=== PATIENT | female | born 1945 | race Caucasian/White ===

== ENCOUNTER 2020-08-30 18:53 | Inpatient (IN) | payer OTHER ==
[~2020-08-30] VITALS: Ht 152.4 cm; Wt 45.4 kg
[2020-08-30] MEDS ORDERED: CEphaleXIN 500 MG CAPSULE PO ONE (19:30)
--- NOTE | 2020-08-30 19:30 | NUR ---
patient resting in bed, no acute distress is noted at this time
[2020-08-30] MEDS ORDERED: CEphaleXIN 500 MG CAPSULE ONE (19:41)
[2020-08-30] MEDS ORDERED: QUET300T2 PO (20:59)
[2020-08-30] MEDS ORDERED: TELM80TA2 PO (20:59)
[2020-08-30] MEDS ORDERED: TETR25TA2 PO ×2 (20:59)
[2020-08-30] MEDS ORDERED: MIRT15TA7 PO (20:59)
[2020-08-30] MEDS ORDERED: ROSU5TAB13 PO (20:59)
--- NOTE | 2020-08-30 21:00 | NUR ---
patient is resting in bed, looking at environment, no acute distress is noted
--- NOTE | 2020-08-30 22:25 | NUR ---
Pt. admitted to 139A, under care of Dr. Grullon. Belongs List completed, transported with all original paperwork via gurney to [facility].
[2020-08-30 23:00] VITALS: BP 156/78
[2020-08-30] MEDS ORDERED: MAGNESIUM HYDROXIDE 30 ML LIQUID UDC PO PRN (23:15)
[2020-08-30] MEDS ORDERED: MAG HYDROX/AL HYDROX/SIMETH 30 ML LIQUID UDC PO PRN (23:15)
[2020-08-30] MEDS ORDERED: LORAZEPAM 0.5 MG TABLET PO PRN (23:15)
[2020-08-30] MEDS ORDERED: ACETAMINOPHEN 325 MG TABLET PO PRN (23:15)
[2020-08-30] MEDS: TEMAZEPAM 7.5 MG CAPSULE PO PRN (23:37)
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
--- NOTE | 2020-08-31 06:50 | NUR ---
SHE DID NOT SLEEP THROUGH OUT THE NIGHT.00 HOURS EVEN AFTER TAKING RESTORIL 7.5MG AT 23:35. SHE KEPT SAYING "I WANT TO GO HOME'.
[2020-08-31 07:30] VITALS: BP 131/61
--- NOTE | 2020-08-31 11:00 | NUR ---
Gps/Buttonhole Marker- Noted patient was given her riki ($ 201.00) to another patient. the money she kept in her pocket., was placed in the Unit safe
[2020-08-31] MEDS ORDERED: QUETIAPINE FUMARATE 25 MG TABLET PO PRN (13:30)
[2020-08-31 15:26] VITALS: BP 122/60
--- NOTE | 2020-08-31 16:16 | NUR ---
Record Changer Tester Note: Initial Assessment completed today. Patient lives at home with her 2 sisters. Preliminary discharge plans are for patient to return home. Family contact: sister Hahn, .
[2020-08-31] MEDS: CEphaleXIN 500 MG CAPSULE PO SCH (17:49)
--- NOTE | 2020-08-31 18:22 | NUR ---
Gps/water fabricator operator- Patient . anxious, wanting to go home, confused, claimed her on his way to pick her up, throwing his dentures on the floor.,. dentures kept in a denture cup and plkept in the medication room. refusing to eat dinner claimed she already ate. Informed patient she has not eaten dinner yet, got irritated, agitated., also refusing lap tray, kept her in ,in front of the Nurses station for her safety.. patient refusing to take pm medications.
[2020-08-31 20:09] VITALS: BP 123/73
[2020-08-31] MEDS: QUETIAPINE FUMARATE 100 MG TABLET PO SCH (20:13)
[2020-08-31] MEDS ORDERED: TETRABENAZINE PO SCH (21:00)
--- NOTE | 2020-09-01 06:00 | NUR ---
GPS: Pt. slept 7.15 last night. Showered earlier by staff. Calm and cooperative during care. Poor insight to present situation. Denies wanting to hurt self. Fall precautions observed. Reality re-orientation provided.
[2020-09-01 07:30] VITALS: BP 122/69
[2020-09-01 07:56] LABS: BASOPHILS # (AUTO) 0.1 K/uL (0.0-8.0); BASOPHILS % (AUTO) 1.1 % (0.0-2.0); EOSINOPHILS % (AUTO) 0.8 % (0.0-7.0); HEMATOCRIT 41.3 % (31.2-41.9); HEMOGLOBIN 13.6 g/dL (10.9-14.3); LYMPHOCYTES # (AUTO) 1.4 K/uL (20.0-40.0); LYMPHOCYTES % (AUTO) 24.2 % (20.5-51.5); MEAN CORPUSCULAR HEMOGLOBIN 30.1 uug (24.7-32.8); MEAN CORPUSCULAR HGB CONC 33 g/dL (32.3-35.6); MEAN CORPUSCULAR VOLUME 91.8 fL (75.5-95.3); MONOCYTES # (AUTO) 0.6 K/uL (2.0-10.0); MONOCYTES % (AUTO) 9.8 % (0.0-11.0); NEUTROPHILS # (AUTO) 3.7 K/uL (1.8-8.9); NEUTROPHILS % (AUTO) 64.1 % (38.5-71.5); PLATELET COUNT (AUTO) 220 K/uL (179-408); WHITE BLOOD COUNT (AUTO) 5.7 K/uL (3.8-11.8)
[2020-09-01 08:14] LABS: THYROID STIMULATING HORMONE 1.019 mIU/mL (0.358-3.740)
[2020-09-01 08:21] LABS: CREATININE 0.7 mg/dL (0.6-1.3); MAGNESIUM 2.5 mg/dL (1.8-2.4); POTASSIUM 3.4 mmol/L (3.5-5.1)
[2020-09-01] MEDS ORDERED: TETRABENAZINE 25 MG PO SCH (09:00)
[2020-09-01] MEDS: VALSARTAN 160 MG TABLET PO SCH (09:00)
[2020-09-01] MEDS ORDERED: POTASSIUM CHLORIDE 20 MEQ TAB.PRT.SR PO SCH (09:15)
[2020-09-01] MEDS: CEphaleXIN 500 MG CAPSULE PO SCH ×2 (10:10→17:17)
[2020-09-01] MEDS: QUETIAPINE FUMARATE 25 MG TABLET PO PRN (10:11)
[2020-09-01] MEDS: ATORVASTATIN 10 MG TABLET PO SCH (10:12)
--- NOTE | 2020-09-01 10:40 | NUR ---
Gps/Ink Maker- Per daughter Selma, she would like her mother to received Flu and pneumonia vaccine, she claimed she does not remember patient receiving vaccines for many years. Asked patient if ok to give her the vaccines she stated" its ok"
--- NOTE | 2020-09-01 10:47 | NUR ---
Gps/Bowling Alley Manager- Poor initiation to feed self. Encouraged to eat, assisted with her breakfast late fluids offered, . Prompted to take routine am meds. Flat guarded , but able to follow simple directions. safety reviewed. Dentures kept in the medicine room (upper and lower) Patient kept removing it,
[2020-09-01] MEDS ORDERED: IV NORMAL SALINE 500 ML IV ONE (14:15)
--- NOTE | 2020-09-01 15:19 | NUR ---
Gps/Parts Administrator- Family called(Sophia -younger sister, and Selma -another sister)they want to see patient progress. Family unable to bring home med. (Xenazine ) claimed too far for them, Pharmacy was called by Cafe Worker and was informed .
--- NOTE | 2020-09-01 15:22 | NUR ---
Gps/Certified Orthotist Practice Manager- Patient was informed the need to start IV line on her, as per Jayjay ENGRAVER SEALS needed IVF . Saline lock insyte #22 inserted to her right hand, .site secured.
[2020-09-01] MEDS ORDERED: IV D5W 1000ML 1,000 ML IV ONE (15:30)
[2020-09-01 16:00] VITALS: BP 128/78
--- NOTE | 2020-09-01 16:10 | NUR ---
Gps/Kersey Department Supervisor- OOB to her angie-chair, kept by the Nurses station, to be monitored closely r/t to IVF infusing at this time.
--- NOTE | 2020-09-01 16:40 | NUR ---
Gps/Sweatband Separator- Present IVF was pulled out by patient. . Peripheral IV #22 re-inserted to her left forearm , NS X 1 bag 500 ml as ordered By Bartolo Pleitez NP. Patient was instructed not to removed IV line, verbalized understanding.Moniored closely for compliance, kept up by the Nursing station for close supervision
[2020-09-01] MEDS: ENSURE ENLIVE (VAN) 240 ML LIQUID PO SCH (17:00)
--- NOTE | 2020-09-01 20:00 | NUR ---
RECEIVED PATIENT IN THE HALLWAY. HE IS NOTED A/O X 1. CALM AND PLEASANT UPON APPROACHED. PATIENT IS POOR HISTORIAN, UNABLE TO HAVE A MEANINGFUL CONVERSATION WITH THIS DEAN OF GIRLS. MOOD IS LOW, AFFECT IS BLUNTED. PATIENT IS RECEIVED IV FLUIDS 5DW AT 75ML/HRS. IV SITE ON LEFT HAND POSTERIOR ASPECT IS PATENT AND INTACT. NO REDNESS, NO INFILTRATION NOTED AT THIS TIME. V/S STABLE. SAFETY AND FALL PRECAUTION IN PLACE. WILL CONTINUE TO MONITOR.
[2020-09-01 20:22] VITALS: BP 128/74
[2020-09-01] MEDS: QUETIAPINE FUMARATE 100 MG TABLET PO SCH (21:02)
[2020-09-01 21:20] LABS: *BILIRUBIN,URIN NEGATIVE (NEGATIVE); *BLOOD, URINE TRACE LYSED (NEGATIVE); *CLARITY,URINE SLIGHTLY CLOUDY (CLEAR); *COLOR,URINE YELLOW (YELLOW); *KETONES,URINE NEGATIVE (NEGATIVE); *UROBILINOGEN,URINE 0.2 E.U./dl (NORMAL); LEUKOCYTE ESTERASE ,URINE TRACE (NEGATIVE); NITRITE, URINE NEGATIVE (NEGATIVE); PH,URINE 5.5 (5.0-8.0); UGLUCOSE NEGATIVE (NEGATIVE)
--- NOTE | 2020-09-01 21:30 | NUR ---
PATIENT PULLED OUT HER IV. NEW IV INSERTION WAS DONE ON HER RIGHT HAND POSTERIOR ASPECT.PATIENT TOLERATED WELL. PER NURSE REPORT, THIS IS THE THIRD TIME PATIENT PULLS HER IV OUT. PATIENT IS HARD TO REDIRECT. WILL CONTINUE TO MONITOR.
[2020-09-01 23:19] LABS: BACTERIA,URINE FEW /HPF (NONE SEEN)
[2020-09-01 23:20] LABS: SQUAMOUS EPITHELIAL CELL,UR MODERATE /HPF (NONE SEEN)
--- NOTE | 2020-09-01 23:40 | NUR ---
Patient pulled her IV for the third time. She is unable to follow direction. Dr Kruger was notify and order obtained to D/C IV at this time. Will continue to monitor. closely.
[2020-09-02] MEDS: TEMAZEPAM 7.5 MG CAPSULE PO PRN (00:49)
[2020-09-02 07:30] VITALS: BP 130/75
[2020-09-02 07:55] LABS: CREATININE 0.6 mg/dL (0.6-1.3)
[2020-09-02] MEDS: VALSARTAN 160 MG TABLET PO SCH (08:54)
[2020-09-02] MEDS: CEphaleXIN 500 MG CAPSULE PO SCH ×2 (08:54→16:59)
[2020-09-02] MEDS: ATORVASTATIN 10 MG TABLET PO SCH (08:54)
[2020-09-02] MEDS: ENSURE ENLIVE (VAN) 240 ML LIQUID PO SCH ×2 (08:55→16:59)
[2020-09-02] MEDS: POTASSIUM CHLORIDE 20 MEQ TAB.PRT.SR PO SCH ×2 (10:06→12:50)
--- NOTE | 2020-09-02 10:10 | NUR ---
Gps/Garbage Truck Helper- K+ 3.0, orders received from Bartolo MELARA ,potasium 30 meq. x 2 po as ordered, was admnistered.
[2020-09-02] MEDS: QUETIAPINE FUMARATE 25 MG TABLET PO PRN (12:50)
--- NOTE | 2020-09-02 14:30 | NUR ---
Gps/Strategic Alliances Manager- Patient's sister Selma called, wants to know progress of patient.Patient verbalizinf wanting to leave, claimed family are on their way to pick her up. Alert, oriented x2, interactive with the staff when questions asked . No tantrums noted. Per patient's sister patient tends to throw foods on the floor , refusing to eat ,refusing her meds at home.. Patient had been compliant with her routine meds. ,Adequate fluid intake. Continent of her bowels and bladder .
[2020-09-02 15:23] VITALS: BP 123/67
[2020-09-02 20:15] VITALS: BP 132/64
[2020-09-02] MEDS: QUETIAPINE FUMARATE 100 MG TABLET PO SCH (21:29)
--- NOTE | 2020-09-03 06:38 | NUR ---
Patient slept for approx. 7.30 hrs through the night. She is noted isolative and withdrawn. denied SI. able to CFS.
[2020-09-03 07:30] VITALS: BP 115/63
--- NOTE | 2020-09-03 08:56 | NUR ---
UR Note: Auth# [id number] obtained from Melania Ratliff with [employer] ([phone]) 6 days approved from 08/30/2020to 09/04/2020 with review due on 09/04/2020.
--- NOTE | 2020-09-03 08:57 | NUR ---
Firearms Report: Cargo Mate completed and submitted a [employer] firearms report for 5150 grave disability certification. A copy of report has been placed in patient chart.
[2020-09-03] MEDS: CEphaleXIN 500 MG CAPSULE PO SCH ×2 (09:00→17:06)
[2020-09-03] MEDS: ATORVASTATIN 10 MG TABLET PO SCH (09:00)
[2020-09-03] MEDS: VALSARTAN 160 MG TABLET PO SCH (09:00)
[2020-09-03] MEDS: ENSURE ENLIVE (VAN) 240 ML LIQUID PO SCH ×2 (09:01→17:06)
--- NOTE | 2020-09-03 11:18 | NUR ---
Coordination of Care: Patient has an aftercare test case developer named Selma ([phone]) who will help coordinate aftercare appointments.
--- NOTE | 2020-09-03 12:19 | NUR ---
Individual Therapy: care worker met with patient for brief counseling. care worker assessed for patient's presenting problem depressed mood. Patient appeared depressed and withdrawn. Patient did not want to speak to this SW at this time. This SW was unable to provide therapy at this time.
[2020-09-03 15:18] VITALS: BP 116/80
[2020-09-03 20:13] VITALS: BP 130/74
[2020-09-03] MEDS ORDERED: QUETIAPINE FUMARATE 100 MG TABLET PO SCH (21:00)
--- NOTE | 2020-09-04 05:24 | NUR ---
Gps: REMAIN CALM AND COOPERATIVE WITH MEDS AND CARE. PATIENT NOTED ISOLATIVE. DENIED SI. RESTING IN BED. ASSISTED WITH ADL'S. CONTINUE PLAN OF CARE.
--- NOTE | 2020-09-04 05:57 | NUR ---
Patient slept for approx. 6.30 hrs through the night.
[2020-09-04 08:14] VITALS: BP 98/65
--- NOTE | 2020-09-04 08:31 | NUR ---
Substance Abuse Intervention: Patient was provided with a brief substance abuse intervention, however, patient was unable to identify the substance and referred to [facility] ([phone]), [facility] ([phone]), and [facility] ([phone]).
[2020-09-04] MEDS: VALSARTAN 160 MG TABLET PO SCH (08:44)
[2020-09-04] MEDS: CEphaleXIN 500 MG CAPSULE PO SCH ×2 (08:44→17:04)
[2020-09-04] MEDS: ATORVASTATIN 10 MG TABLET PO SCH (08:44)
[2020-09-04] MEDS: ENSURE ENLIVE (VAN) 240 ML LIQUID PO SCH ×2 (08:45→17:04)
--- NOTE | 2020-09-04 09:11 | NUR ---
UR Note: Auth# [id number] obtained from Melania Ratliff with [employer] ([phone]) left a voicemail of clinical review requesting for more days.
--- NOTE | 2020-09-04 10:09 | NUR ---
Coordination of Care: This SW contacted case management social worker Selma ([phone]) to help coordinate aftercare appointments.
--- NOTE | 2020-09-04 11:32 | NUR ---
Court Hearing: Patient's court hearing is today and it was upheld for GD.
[2020-09-04] MEDS: QUETIAPINE FUMARATE 25 MG TABLET PO SCH (12:46)
--- NOTE | 2020-09-04 12:59 | NUR ---
SW Family Contact: This SW spoke with Selma, sister, ([phone]) discussed treatment plan and how patient has been doing. Per Selma, she stated upon discharge she will pick patient up.
--- NOTE | 2020-09-04 13:28 | NUR ---
Social Work Coordination: Patient will follow up with (Piano Regulator) Dr. Bowden located at [address], [address], [place] [address]; ([phone]), however, this SW spoke with Chelle shaving machine operator who stated office is closed until September 16, 2020. Patient will follow up with (psychiatrist) Dr. Shadi Mulligan located at [address] [place] [address] ([phone]) on September 19 at 9:30AM and was scheduled with cash manager Carmencita.
[2020-09-04 16:00] VITALS: BP 123/69
[2020-09-04 20:04] VITALS: BP 133/76
[2020-09-04] MEDS ORDERED: QUETIAPINE FUMARATE 100 MG TABLET PO SCH (21:00)
--- NOTE | 2020-09-05 01:37 | NUR ---
RECEIVED PATIENT IN BED. ISOLATIVE AND CONFUSED. MOOD LABILE. SHE REFUSED HER MEDICATIONS AND KEPT SAYING "I CANNOT TAKE IT. MY IS STANDING OVER THERE TO TAKE ME HOME'. VERY ANXIOUS TO GO HOME. KEPT HER DENTURES IN HER HANDS. HOWEVER SAFETY PRECAUTIONS IN PLACE. VISUAL CHECKS MADE ON HER. WILL CONTINUE TO MONITOR.
--- NOTE | 2020-09-05 06:50 | NUR ---
SHE SLEPT FOR 4 HOURS. KEPT TALKING TO HER IN BED ON AND OFF DURING THE NIGHT.
[2020-09-05 07:30] VITALS: BP 138/73
--- NOTE | 2020-09-05 08:23 | NUR ---
UR Note: Auth#[id number]. This SW received a voicemail from Melania D. [employer] ([phone]) who stated patient is authorized until 09/07/2020 and review will be due on 09/07.
[2020-09-05] MEDS: ENSURE ENLIVE (VAN) 240 ML LIQUID PO SCH ×3 (08:34→17:38)
[2020-09-05] MEDS: ATORVASTATIN 10 MG TABLET PO SCH (08:39)
[2020-09-05] MEDS: CEphaleXIN 500 MG CAPSULE PO SCH ×2 (08:39→16:18)
[2020-09-05] MEDS: VALSARTAN 160 MG TABLET PO SCH (08:39)
--- NOTE | 2020-09-05 11:19 | NUR ---
Individual Therapy: rodent control worker met with patient for brief counseling. rodent control worker assessed for patient's presenting problem depressed mood. Patient appeared withdrawn and isolative. Patient was vague with this SW and did not want to speak to this SW. Patient was only responding "yes or no". This SW unable to conduct therapy at this time. Patient wanted to sleep.
[2020-09-05] MEDS: QUETIAPINE FUMARATE 25 MG TABLET PO SCH (12:44)
[2020-09-05 16:00] VITALS: BP 126/66
--- NOTE | 2020-09-05 18:56 | NUR ---
Patient AOx1. Patient is calm and cooperative. No signs of acute distress. Compliant with medications. Encouraged patient to eat meals. Encouraged patient to ambulate. Vital signs stable. Will endorse to incoming shift.
[2020-09-05 20:10] VITALS: BP 104/59
[2020-09-05] MEDS ORDERED: QUETIAPINE FUMARATE 200 MG TABLET PO SCH (21:00)
--- NOTE | 2020-09-05 21:50 | NUR ---
Received patient in bed asleep but easily arousable. No s/s of acute distress noted at this time. Patient refused evening medications. Provided patient education on medication use and benefits. Safety measures and q15 min checks in place, bed alarm on.
--- NOTE | 2020-09-06 06:46 | NUR ---
Patient slept 7.[address] in [address] and will endorse to oncoming nurse
[2020-09-06 07:30] VITALS: BP 115/60
[2020-09-06] MEDS: CEphaleXIN 500 MG CAPSULE PO SCH ×2 (08:40→16:10)
[2020-09-06] MEDS: ENSURE ENLIVE (VAN) 240 ML LIQUID PO SCH ×3 (08:40→17:50)
[2020-09-06] MEDS: VALSARTAN 160 MG TABLET PO SCH (08:44)
[2020-09-06] MEDS: ATORVASTATIN 10 MG TABLET PO SCH (08:45)
--- NOTE | 2020-09-06 10:16 | NUR ---
SW Family Contact: This SW spoke with Selma, sister, ([phone]) who stated she will picker tender helper patient at 4PM 09/07.
[2020-09-06] MEDS: QUETIAPINE FUMARATE 25 MG TABLET PO SCH (12:06)
--- NOTE | 2020-09-06 13:37 | NUR ---
UR Note: Auth#[id number]. This SW contacted Melania D. [employer] ([phone]) and left a voicemail in regards to patient's discharge plan. This SW left detailed voicemail.
--- NOTE | 2020-09-06 13:37 | NUR ---
Individual Therapy: size worker met with patient for brief counseling. size worker assessed for patient's presenting problem depressed mood. Patient presented with euthymic mood. Patient was smiling at this SW. Patient continues to be vague with her answers. Patient stated she is "happy to go home tomorrow". This SW actively listened and provided emotional support.
[2020-09-06 16:43] VITALS: BP 131/65
--- NOTE | 2020-09-06 19:17 | NUR ---
No significant changes during shift. Patient stayed in room and interacted when approached. Patient refused to eat meals despite frequent instructions to eat. Patient compliant with Keflex medications only. Patient aware of her discharge tomorrow. Will endorse to incoming shift.
[2020-09-06 20:00] VITALS: BP 134/75
[2020-09-06] MEDS: QUETIAPINE FUMARATE 100 MG TABLET PO SCH ×2 (20:10→20:42)
--- NOTE | 2020-09-06 20:45 | NUR ---
PATIENT AWAKE IN BED. VERY AGITATED WHEN APPROACHED. REFUSED HS MEDICATIONS. PULMONARY FUNCTION TECHNICIAN NOTIFIED. ALL NEEDS ATTENDED.
[2020-09-07 07:30] VITALS: BP 126/63
--- NOTE | 2020-09-07 08:04 | NUR ---
Discharge Note: Patient will be discharged home [address] [place] [address]; ([phone]. Patients sister Selma ([phone]) will roller picker patient at 4PM. Patients sister Selma is aware and agreeable with discharge. Upon discharge, patient appear to be calm, cooperative and happy to be going home. Patient appeared alert and oriented x2. Patient denies suicidal and homicidal ideation. Patient denies visual/auditory hallucination. Patient will follow up with (Oracle Pl Sql Developer) Dr. oBwden located at [address], [address], [place] [address]; ([phone]), however, this SW spoke with Chelle simental who stated office is closed until September 16, 2020. Patient will follow up with (psychiatrist) Dr. Shadi Mulligan located at [address] [place] [phone] ([phone]) on September 19 at 9:30AM and was scheduled with office manager receptionist Carmencita. Patient has a children's zoo caretaker Selma ([phone]) who will coordinate aftercare appointments if needed. Patient was provided referrals to the following substance abuse programs; however, patient was unable to identify the substance: [facility] ([phone]); [facility] [address] [place] [address] ([phone]); [address] [place] [address] ([phone]); [facility] ([phone]); [facility] ([phone]); [facility] ([phone]); [facility] ([phone]). Patient presented with euthymic mood and congruent affect. Addendum: 09/07/20 at 0952 by SUYAPA HOROWITZ This SUYAPA received a phone call from field case manager Selma at 0900 ([phone]) who stated that she arranged therapy appointment for patient at [facility] located at [address] [place] [address]; ([phone]) on September 12 at 9AM via tele[employer].
[2020-09-07] MEDS: ENSURE ENLIVE (VAN) 240 ML LIQUID PO SCH ×2 (09:00→13:00)
--- NOTE | 2020-09-07 09:50 | NUR ---
Instructional Supervisor: This SW received a phone call from vocational case manager Selma ([phone]) who stated that she arranged therapy appointment for patient at [facility] located at [address] [place] [address]; ([phone]) on September 12 at 9AM via telehealth.
[2020-09-07 10:38] VITALS: BP 126/63
[2020-09-07] MEDS: VALSARTAN 160 MG TABLET PO SCH (10:38)
[2020-09-07] MEDS: ATORVASTATIN 10 MG TABLET PO SCH (10:38)
[2020-09-07] MEDS: CEphaleXIN 500 MG CAPSULE PO SCH (10:38)
[2020-09-07] MEDS ORDERED: QUETIAPINE FUMARATE 25 MG TABLET PO SCH (13:00)
--- NOTE | 2020-09-07 16:10 | NUR ---
Pt is being picked up by her sister to be discharged home. Pt is aware and willing to go. Discharged instructions given to the family including follow up appointments and prescription to be taken to the pharmacy All belongings returned, including dentures and manuel. Pt is calm and cooperative.
[2020-09-07] MEDS ORDERED: QUETIAPINE FUMARATE 100 MG TABLET PO SCH (21:00)
== END 2020-09-07 16:35 | disposition home or self-care (01) | DRG 885 ==
LOC: ER 18:56 → GPS 22:10
PROVIDERS: ADMIT Psychiatry & Neurology Psychosomatic Medicine; ATTEND Nurse Practitioner Family
DX: F29 Unspecified psychosis not due to a substance or known physiological condition (principal); N39.0 Urinary tract infection, site not specified; E87.0 Hyperosmolality and hypernatremia; G25.9 Extrapyramidal and movement disorder, unspecified; I10 Essential (primary) hypertension; E11.9 Type 2 diabetes mellitus without complications; E78.5 Hyperlipidemia, unspecified; E87.6 Hypokalemia; F32.9 Major depressive disorder, single episode, unspecified; F25.9 Schizoaffective disorder, unspecified; Z73.6 Limitation of activities due to disability; B96.89 Other specified bacterial agents as the cause of diseases classified elsewhere
CPT/HCPCS: 36415; 83735; 84443; 85025; 87086; 93005; A4663; J7040; J7070